=== PATIENT | female | born 1950 | race Caucasian/White ===

== ENCOUNTER 2018-10-11 22:48 | Inpatient (IN) | payer MEDICARE ==
[~2018-10-11] VITALS: Ht 165.1 cm; Wt 65.4 kg
--- NOTE | 2018-10-11 23:25 | NUR ---
Pt arrives to ed with post choley procedure. pt reports she feel constipated for a few days with no relief. pt denies any blood in stool reports no bm for 2 days. Pt reprots cramping like abd pain with no radiation. Awaiting further orders.
[2018-10-11] MEDS ORDERED: ONDANSETRON 2MG/ML, 2ML ONE (23:58)
[2018-10-11] MEDS ORDERED: MORPHINE SULFATE 4 MG/ML, 1ML ONE (23:59)
[2018-10-12] MEDS ORDERED: SODIUM CHLORIDE FLUSH 10ML SYR IVF ONE
--- NOTE | 2018-10-12 00:10 | NUR ---
po contrast given at 0010, due for ct at 0140.
[2018-10-12 00:13] LABS: BASOPHILS # (AUTO) 0.03 x10^3/uL (0-0.1); BASOPHILS % (AUTO) 0 % (0-1); EOSINOPHILS # (AUTO) 0.17 x10^3/uL (0-0.4); EOSINOPHILS % (AUTO) 2 % (1-7); LYMPHOCYTES # (AUTO) 1.02 x10^3/uL (1-3.4); LYMPHOCYTES % (AUTO) 13 % (22-44); MD NO; MEAN CORPUSCULAR HEMOGLOBIN 32.5 pg (27.0-34.8); MEAN CORPUSCULAR HGB CONC 34.7 g/dL (32.4-35.8); MEAN CORPUSCULAR VOLUME 93.7 fL (80-100); MONOCYTES # (AUTO) 0.42 x10^3/uL (0.2-0.8); MONOCYTES % (AUTO) 5 % (2-9); NEUTROPHILS # (AUTO) 6.15 x10^3/uL (1.8-6.8); NEUTROPHILS % (AUTO) 79 % (42-75); PLATELET COUNT 315 x10^3/uL (130-400); RED CELL DISTRIBUTION WIDTH 12.8 % (9.6-15.2)
[2018-10-12 00:24] LABS: ALANINE AMINOTRANSFERASE 25 U/L (12-78); ALBUMIN 3.8 g/dL (3.4-5.0); ANION GAP 5 mmol/L (5-15); CALCIUM 9.3 mg/dL (8.5-10.1); CHLORIDE 109 mmol/L (98-107)
--- NOTE | 2018-10-12 00:26 | NUR ---
piv placed and prepped for ct. pt medicated for pain.
[2018-10-12 00:27] LABS: ALKALINE PHOSPHATASE 95 U/L (45-117); BILIRUBIN,TOTAL 0.3 mg/dL (0.2-1.0); CREATININE 0.65 mg/dL (0.55-1.02)
[2018-10-12] MEDS: MORPHINE SULFATE 4 MG/ML, 1ML IVPush PRN ×2 (00:28→00:45)
[2018-10-12] MEDS ORDERED: ONDANSETRON 2MG/ML, 2ML IVPush ONE ×2 (00:30→02:00)
--- NOTE | 2018-10-12 00:33 | NUR ---
PT PLACED ON MONITORS FOR SPO2 MONITORING.
[2018-10-12] MEDS ORDERED: MORPHINE SULFATE 4 MG/ML, 1ML ONE ×2 (00:40→01:31)
--- NOTE | 2018-10-12 01:13 | NUR ---
REPORT TO CARISA CAMARENA.
[2018-10-12] MEDS ORDERED: ONDANSETRON 2MG/ML, 2ML ONE (01:35)
[2018-10-12 01:37] LABS: CULTURE INDICATED? YES; MICROSCOPIC AUTO
--- NOTE | 2018-10-12 01:43 | NUR ---
PT MEDICATED FOR PAIN AND NAUSEA. TAKEN BY [facility] TO CT.
[2018-10-12] MEDS ORDERED: OMNIPAQUE 350 MG/ML, 100ML BOTTLE ONE (01:50)
[2018-10-12] MEDS ORDERED: MORPHINE SULFATE 4 MG/ML, 1ML IVPush ONE (02:00)
--- NOTE | 2018-10-12 02:12 | NUR ---
BACK FROM CT. RESTING QUIETLY WITH PAIN CONTROLLED.
[2018-10-12] MEDS ORDERED: SODIUM CHLORIDE 0.9% 1,000 ML IV ONE (02:33)
[2018-10-12 02:57] LABS: INTERNATIONAL NORMALIZED RATIO 0.95 (0.93-1.1)
--- NOTE | 2018-10-12 03:19 | NUR ---
PT TRANSPORTED WITH BELONGINGS TO ROOM 445 BY [facility]
[2018-10-12] MEDS ORDERED: hydrALAzine 20 MG/ML, 1ML IVPush PRN (03:30)
[2018-10-12] MEDS ORDERED: PROMETHAZINE 25 MG/ML, 1ML IM PRN (03:30)
[2018-10-12] MEDS ORDERED: LABETALOL 5MG/ML, 20ML IVPush PRN (03:30)
[2018-10-12] MEDS ORDERED: ONDANSETRON ODT 4 MG PO PRN (03:30)
[2018-10-12] MEDS ORDERED: ACETAMINOPHEN 325 MG TABLET PO PRN (03:30)
[2018-10-12] MEDS ORDERED: ONDANSETRON 2MG/ML, 2ML IVPush PRN (03:30)
[2018-10-12 03:33] VITALS: BP 169/93
[2018-10-12] MEDS: OXYcodone/APAP 5/325MG TABLET PO PRN ×3 (03:53→17:33)
[2018-10-12 03:55] LABS: HEMOGLOBIN A1C 5.6 % (4.2-6.3)
[2018-10-12 03:58] LABS: FREE T4 (FREE THYROXINE) 1.07 ng/dL (0.76-1.46); THYROID STIMULATING HORMONE 1.31 mIU/L (0.358-3.740)
[2018-10-12] MEDS: morphine SULFATE 10 MG/ML, 1ML IVPush PRN ×2 (05:56→09:15)
[2018-10-12 06:06] VITALS: BP 109/72
[2018-10-12 07:24] VITALS: BP 124/77
[2018-10-12] MEDS: BUPROPION SR 150 MG TABLET PO SCH (09:16)
[2018-10-12] MEDS: LISINOPRIL 5 MG TABLET PO SCH (09:16)
[2018-10-12] MEDS: SODIUM CHLORIDE 0.9% 1,000 ML IV SCH ×2 (09:24→16:36)
[2018-10-12 12:03] VITALS: BP 102/69
[2018-10-12 19:10] VITALS: BP 113/65
[2018-10-13] MEDS: OXYcodone/APAP 5/325MG TABLET PO PRN ×4 (00:38→17:31)
[2018-10-13] MEDS: SODIUM CHLORIDE 0.9% 1,000 ML IV SCH (00:39)
[2018-10-13 02:27] VITALS: BP 113/67
[2018-10-13 05:30] LABS: BASOPHILS # (AUTO) 0.04 x10^3/uL (0-0.1); BASOPHILS % (AUTO) 1 % (0-1); EOSINOPHILS % (AUTO) 2 % (1-7); LYMPHOCYTES # (AUTO) 1.66 x10^3/uL (1-3.4); LYMPHOCYTES % (AUTO) 39 % (22-44); MD NO; MEAN CORPUSCULAR HEMOGLOBIN 33.1 pg (27.0-34.8); MEAN CORPUSCULAR HGB CONC 34.9 g/dL (32.4-35.8); MEAN CORPUSCULAR VOLUME 94.8 fL (80-100); MEAN PLATELET VOLUME 8.4 fL (7.4-10.4); MONOCYTES # (AUTO) 0.41 x10^3/uL (0.2-0.8); MONOCYTES % (AUTO) 10 % (2-9); NEUTROPHILS # (AUTO) 2.07 x10^3/uL (1.8-6.8); NEUTROPHILS % (AUTO) 48 % (42-75); PLATELET COUNT 266 x10^3/uL (130-400); RED BLOOD COUNT 3.61 x10^6/uL (3.82-5.3); RED CELL DISTRIBUTION WIDTH 13.1 % (9.6-15.2)
[2018-10-13 05:39] LABS: ALANINE AMINOTRANSFERASE 20 U/L (12-78); ALBUMIN 2.9 g/dL (3.4-5.0); ANION GAP 2 mmol/L (5-15); CALCIUM 8.6 mg/dL (8.5-10.1); CHLORIDE 113 mmol/L (98-107)
[2018-10-13 05:44] LABS: ALKALINE PHOSPHATASE 79 U/L (45-117); BILIRUBIN,TOTAL 0.4 mg/dL (0.2-1.0); CHOLESTEROL, TOTAL 120 mg/dL (140-239); CREATININE 0.47 mg/dL (0.55-1.02); HDL CHOL % 51 % (28-40); HDL CHOLESTEROL (DIRECT) 61 mg/dL (40-60); LDL CHOLESTEROL,CALCULATED 49 mg/dL (54-169); LDL/HDL RATIO 0.8 (0.5-3.0); TOTAL PROTEIN 5.6 g/dL (6.4-8.2); TRIGLYCERIDES 48 mg/dL (50-200); VLDL CHOLESTEROL 10 mg/dL (0-25)
[2018-10-13 06:48] VITALS: BP 109/67
[2018-10-13] MEDS: BUPROPION SR 150 MG TABLET PO SCH (08:37)
[2018-10-13] MEDS: LISINOPRIL 5 MG TABLET PO SCH (08:38)
[2018-10-13 13:06] VITALS: BP 100/54
[2018-10-13] MEDS ORDERED: DOCU-131 PO (14:07)
[2018-10-13] MEDS ORDERED: LISI5TAB7 PO (14:07)
[2018-10-13] MEDS ORDERED: BUPR150T73 PO (14:07)
[2018-10-13] MEDS ORDERED: OXYC1TAB7 PO (14:07)
== END 2018-10-13 17:40 | disposition home or self-care (01) | DRG 394 ==
LOC: ED 23:59 → EDIP 10-12 02:35 → 4NOR 10-12 03:23
PROVIDERS: ADMIT Internal Medicine; ATTEND Internal Medicine
DX: K46.9 Unspecified abdominal hernia without obstruction or gangrene (principal); Q43.3 Congenital malformations of intestinal fixation; F32.9 Major depressive disorder, single episode, unspecified; M54.5 Low back pain; K59.00 Constipation, unspecified; I10 Essential (primary) hypertension; Z83.3 Family history of diabetes mellitus; Z90.710 Acquired absence of both cervix and uterus; Z98.84 Bariatric surgery status; Z90.49 Acquired absence of other specified parts of digestive tract; Z90.722 Acquired absence of ovaries, bilateral; Z82.49 Family history of ischemic heart disease and other diseases of the circulatory system; Z79.899 Other long term (current) drug therapy
CPT/HCPCS: 36415; 74176; 74177; 80053; 80061; 81001; 83036; 83605; 83690; 83735; 84100; 84439; 84443; 85025; 85610; 87086; 93005; 96374; G0378; J2405; Q9967; J2270; J7030

== ENCOUNTER 2019-07-04 09:15 | Emergency (ER) | payer MEDICARE ==
[~2019-07-04] VITALS: Ht 165.1 cm; Wt 64.5 kg
[~2019-07-04 09:15] MED LIST: BUPR150T73 PO; DOCU-131 PO; LISI5TAB7 PO; OXYC1TAB7 PO
[2019-07-04 09:16] VITALS: BP 137/84
== END 2019-07-04 10:50 | disposition home or self-care (01) ==
LOC: ED 10:44
DX: M25.531 Pain in right wrist (principal)
CPT/HCPCS: 29125; 99283